=== PATIENT | male | born 1975 | race African-American/Black ===

== ENCOUNTER 2021-12-07 01:06 | Emergency (ER) | payer OTHER ==
[~2021-12-07] VITALS: Ht 175.3 cm; Wt 200.0 kg
[2021-12-07 04:00] VITALS: BP 92/58
== END 2021-12-07 05:13 | disposition home or self-care (01) ==
LOC: EDBD 01:06 → ER 01:06
DX: S82.832A Other fracture of upper and lower end of left fibula, initial encounter for closed fracture (principal); F10.129 Alcohol abuse with intoxication, unspecified; W18.39XA Other fall on same level, initial encounter; Y93.89 Activity, other specified; Y92.89 Other specified places as the place of occurrence of the external cause; Y99.8 Other external cause status; Y90.8 Blood alcohol level of 240 mg/100 ml or more
CPT/HCPCS: 29515; 73600; 73620

== ENCOUNTER 2021-12-09 19:34 | Emergency (ER) | payer OTHER ==
[~2021-12-09] VITALS: Ht 177.8 cm; Wt 77.2 kg
[2021-12-09 20:27] VITALS: BP 118/100
== END 2021-12-09 21:34 | disposition home or self-care (01) ==
LOC: ER 19:34 → EDBD 19:34 → EDUNIT# 19:34 → ER 21:34
DX: R56.9 Unspecified convulsions (principal); F10.239 Alcohol dependence with withdrawal, unspecified; Y90.8 Blood alcohol level of 240 mg/100 ml or more

== ENCOUNTER 2022-02-04 21:41 | Inpatient (IN) | payer MEDICAID, OTHER ==
[~2022-02-04] VITALS: Ht 182.9 cm; Wt 73.5 kg
[2022-02-04 23:17] LABS: Basophils # (auto) 0.1 10 ^3/uL (0-0.2); Basophils % (auto) 0.6 % (0.0-2.0); Eosinophils # (auto) 0 10 ^3/uL (0-0.8); Eosinophils % (auto) 0.1 % (0.0-7.0); Hematocrit 43.7 % (41.0-53.0); Hemoglobin 14.6 g/dL (13.5-17.5); Lymphocytes # (auto) 1.1 10 ^3/uL (0.4-5.4); Lymphocytes % (auto) 13.2 % (10.0-50.0); Mean Corpuscular Hemoglobin 31.1 pg (28.0-32.0); Mean Corpuscular Hgb Conc. 33.3 g/dL (32.0-36.0); Mean Corpuscular Volume 93.3 fL (80.0-100.0); Monocytes # (auto) 0.7 10 ^3/uL (0-1.3); Monocytes % (auto) 8.8 % (0.0-12.0); Neutrophils # (auto) 6.6 10 ^3/uL (1.6-8.6); Neutrophils % (auto) 77.3 % (37.0-80.0); Nucleated Red Blood Cells % 0.1 %; Red Blood Cells 4.69 10^6/uL (4.5-5.90); Red Cell Distribution Width 14.5 % (11.8-14.3); White Blood Cell 8.5 10^3/uL (4.4-10.8)
[2022-02-04 23:50] LABS: Albumin 3.5 g/dL (3.4-5.0); BUN/Creatinine Ratio 10.5; Calcium 8.7 mg/dL (8.5-10.1)
[2022-02-04 23:53] LABS: Bilirubin, Total 0.8 mg/dL (0.2-1.0); Total Protein 7.5 g/dL (6.4-8.2)
[2022-02-05] MEDS ORDERED: MAGNESIUM SULFATE 1GM/100ML 100 ML IV ONE (01:15)
[2022-02-05] MEDS ORDERED: LORazepam 2MG/ML-1ML VIAL IV ONE (02:00)
[2022-02-05] MEDS ORDERED: levETIRAcetam 500 MG/5ML INJ IV ONE (02:09)
[2022-02-05] MEDS ORDERED: LEVE500T32 PO (04:56)
[2022-02-05] MEDS ORDERED: POTASSIUM EFFERVESENT TAB 25 MEQ PO ONE ×2 (05:00→11:15)
[2022-02-05 09:44] LABS: Basophils # (auto) 0 10 ^3/uL (0-0.2); Basophils % (auto) 0.6 % (0.0-2.0); Eosinophils # (auto) 0 10 ^3/uL (0-0.8); Eosinophils % (auto) 0.2 % (0.0-7.0); Hematocrit 41.1 % (41.0-53.0); Hemoglobin 13.8 g/dL (13.5-17.5); Lymphocytes # (auto) 1.1 10 ^3/uL (0.4-5.4); Lymphocytes % (auto) 16.8 % (10.0-50.0); Mean Corpuscular Hemoglobin 31.1 pg (28.0-32.0); Mean Corpuscular Hgb Conc. 33.6 g/dL (32.0-36.0); Mean Corpuscular Volume 92.7 fL (80.0-100.0); Monocytes # (auto) 0.7 10 ^3/uL (0-1.3); Monocytes % (auto) 10.1 % (0.0-12.0); Neutrophils # (auto) 4.7 10 ^3/uL (1.6-8.6); Neutrophils % (auto) 72.3 % (37.0-80.0); Nucleated Red Blood Cells % 0.1 %; Red Blood Cells 4.44 10^6/uL (4.5-5.90); Red Cell Distribution Width 14.6 % (11.8-14.3); White Blood Cell 6.5 10^3/uL (4.4-10.8)
[2022-02-05 09:54] LABS: Calcium 8.7 mg/dL (8.5-10.1); Potassium 3.4 mmol/L (3.5-5.1)
[2022-02-05 09:57] LABS: BUN/Creatinine Ratio 12.2
[2022-02-05 10:30] LABS: Urine Bacteria NONE SEEN /hpf (None Seen); Urine Blood Negative /uL (Negative); Urine Specific Gravity 1.022 (1.001-1.035); Urine WBC 6 /hpf (0 - 3)
[2022-02-05 10:36] LABS: Amphetamine Screen, Urine NEGATIVE (NEGATIVE); Barbiturate Scree,Urine NEGATIVE (NEGATIVE); Benzodiazephine Screen, Urine NEGATIVE (NEGATIVE); Cannabinoid Screen, Urine POSITIVE (NEGATIVE)
[2022-02-05 10:43] LABS: Cocaine Screen, Urine NEGATIVE (NEGATIVE); Opiate Scree,Urine NEGATIVE (NEGATIVE); Phencyclidine Screen, Urine NEGATIVE (NEGATIVE)
[2022-02-05] MEDS ORDERED: NITROGLYCERIN 0.4 MG SL TAB SL PRN (11:00)
[2022-02-05] MEDS ORDERED: MORPHINE SULFATE INJ 2 MG/ml SYRG IV PRN (11:00)
[2022-02-05] MEDS ORDERED: LORazepam 2MG/ML-1ML VIAL IV PRN ×2 (11:00→20:00)
[2022-02-05] MEDS ORDERED: SODIUM CHLORIDE 0.9% 1,000 ML IV ONE (11:00)
[2022-02-05] MEDS ORDERED: cefTRIAXone 1GM/50ML D5W 50 ML IV ONE (11:15)
[2022-02-05] MEDS ORDERED: hydrALAZINE HCL 20 MG/ML VL IV PRN (11:15)
[2022-02-05 11:53] LABS: Magnesium 1.3 mg/dL (1.6-2.6)
[2022-02-05] MEDS: FOLIC ACID 1 MG, MULTIPLE VITAMIN 10 ML, MAGNESIUM SULF SDV 50% 8 MEQ, THIAMINE INJ 100... INJ SCH ×5 (12:59)
[2022-02-05 20:56] VITALS: BP 135/99
[2022-02-06 05:00] VITALS: BP 128/87
[2022-02-06 05:46] LABS: Basophils # (auto) 0 10 ^3/uL (0-0.2); Basophils % (auto) 0.5 % (0.0-2.0); Eosinophils # (auto) 0 10 ^3/uL (0-0.8); Eosinophils % (auto) 0.3 % (0.0-7.0); Hematocrit 38.1 % (41.0-53.0); Hemoglobin 12.9 g/dL (13.5-17.5); Lymphocytes # (auto) 1.7 10 ^3/uL (0.4-5.4); Lymphocytes % (auto) 20.5 % (10.0-50.0); Mean Corpuscular Hemoglobin 31.5 pg (28.0-32.0); Mean Corpuscular Hgb Conc. 33.9 g/dL (32.0-36.0); Mean Corpuscular Volume 92.9 fL (80.0-100.0); Monocytes # (auto) 0.7 10 ^3/uL (0-1.3); Monocytes % (auto) 8.9 % (0.0-12.0); Neutrophils # (auto) 5.8 10 ^3/uL (1.6-8.6); Neutrophils % (auto) 69.8 % (37.0-80.0); Nucleated Red Blood Cells % 0.1 %; Red Cell Distribution Width 14.2 % (11.8-14.3); White Blood Cell 8.3 10^3/uL (4.4-10.8)
[2022-02-06 05:57] LABS: Calcium 8.4 mg/dL (8.5-10.1); Potassium 3.5 mmol/L (3.5-5.1)
[2022-02-06 06:00] LABS: BUN/Creatinine Ratio 12.5
[2022-02-06 09:00] VITALS: BP 144/93
[2022-02-06] MEDS ORDERED: cefTRIAXone 1GM/50ML D5W 50 ML IV SCH (09:00)
[2022-02-06] MEDS ORDERED: chlordiazePOXIDE HCL 25 MG CAP PO PRN (09:45)
[2022-02-06] MEDS ORDERED: ENOXAPARIN SOD 40 MG/0.4 ML SYRINGE SC SCH (10:00)
[2022-02-06 13:00] VITALS: BP 150/101
[2022-02-06] MEDS: FOLIC ACID 1 MG, MULTIPLE VITAMIN 10 ML, MAGNESIUM SULF SDV 50% 8 MEQ, THIAMINE INJ 100... INJ SCH ×5 (14:18)
[2022-02-06 17:00] VITALS: BP 152/98
[2022-02-06 22:00] VITALS: BP 151/104
[2022-02-06] MEDS ORDERED: ATORVASTATIN 20 MG TAB PO SCH (22:00)
[2022-02-07 05:00] VITALS: BP 153/102
[2022-02-07] MEDS ORDERED: LEVO500T31 PO (08:39)
[2022-02-07] MEDS ORDERED: CHL25C PO (08:39)
[2022-02-07] MEDS ORDERED: FOLI1TAB6 PO (08:39)
[2022-02-07] MEDS ORDERED: THIA100T5 PO (08:39)
[2022-02-07] MEDS ORDERED: ATO40T PO (08:39)
[2022-02-07] MEDS ORDERED: MULT-1058 PO (08:39)
== END 2022-02-07 09:10 | disposition home or self-care (01) | DRG 53 ==
LOC: EDUNIT# 21:41 → EDBD 21:41 → ER 21:44 → TELE 02-05 10:57 → TELE-CENTR 02-05 20:55
PROVIDERS: ADMIT Registered Nurse; ATTEND Family Medicine
DX: G40.401 Other generalized epilepsy and epileptic syndromes, not intractable, with status epilepticus (principal); E78.00 Pure hypercholesterolemia, unspecified; F10.239 Alcohol dependence with withdrawal, unspecified; F10.229 Alcohol dependence with intoxication, unspecified; E87.6 Hypokalemia; F17.200 Nicotine dependence, unspecified, uncomplicated; F41.9 Anxiety disorder, unspecified; I10 Essential (primary) hypertension; J32.0 Chronic maxillary sinusitis; N39.0 Urinary tract infection, site not specified; Z20.822 Contact with and (suspected) exposure to COVID-19; F19.10 Other psychoactive substance abuse, uncomplicated; Z79.899 Other long term (current) drug therapy
CPT/HCPCS: 36415; 70450; 80048; 80053; 80061; 80307; 80320; 81001; 82542; 83036; 83735; 84443; 85025; 87081; 87426; 93005; 95819; 96365; 96366; 96367; 96368; 96375; G0378; J0696; J7060

== ENCOUNTER 2022-02-20 22:29 | Emergency (ER) | payer OTHER ==
[~2022-02-20] VITALS: Ht 180.3 cm; Wt 75.0 kg
[~2022-02-20 22:29] MED LIST: ATO40T PO; CHL25C PO; FOLI1TAB6 PO; LEVE500T32 PO; LEVO500T31 PO; MULT-1058 PO; THIA100T5 PO
[2022-02-21 00:30] VITALS: BP 138/78
== END 2022-02-21 05:01 | disposition home or self-care (01) ==
LOC: ER 22:29
DX: S00.81XA Abrasion of other part of head, initial encounter (principal); G44.309 Post-traumatic headache, unspecified, not intractable; F12.10 Cannabis abuse, uncomplicated; V98.8XXA Other specified transport accidents, initial encounter; Y93.89 Activity, other specified; Y92.89 Other specified places as the place of occurrence of the external cause; Y99.8 Other external cause status
CPT/HCPCS: 70450